=== PATIENT | female | born 1955 | race Caucasian/White ===

== ENCOUNTER → 2016-11-12 | Outpatient (CLI) | payer SELFPAY ==
--- NOTE | 2016-11-14 10:49 | Diagnostic Imaging Report ---
EXAM: Bilateral screening mammogram 2D views with tomosynthesis The current study was also evaluated with a Computer Aided Detection (CAD) system. INDICATION: Screening. No current complaints stated on the questionnaire. COMPARISON: 06/28/15. FINDINGS: The breasts are composed of heterogeneously dense parenchyma which may decrease mammographic sensitivity. There are benign-appearing calcifications seen. There is focal asymmetry along the outer upper aspect of the left breast. In the CC projection it is located at the lateral margin of the fibroglandular tissue at the mid to posterior depth. Question of a correlating density in the upper aspect of the left MLO view is seen. The asymmetry persists in the tomographic view, particularly within the CC projection, image 15 over 56. The right breast demonstrates no definite change. IMPRESSION: Focal compression view and ultrasound evaluation for upper outer left breast focal asymmetry is recommended. BI-RADS 0. ACR BI-RADS Category 0: Incomplete. (Needs additional imaging evaluation). Result letter will be mailed to the patient. Note: At least 10% of breast cancer is not imaged by mammography. Dictated by: Dictated on workstation # [id number]
== END ==
LOC: RAD 10:03
PROVIDERS: ATTEND Family Medicine
DX: Z12.31 Encounter for screening mammogram for malignant neoplasm of breast (principal)
CPT/HCPCS: 77067

== ENCOUNTER → 2016-12-11 | Outpatient (CLI) | payer SELFPAY ==
--- NOTE | 2016-12-11 22:00 | Diagnostic Imaging Report ---
EXAMINATION: Ultrasound of the left breast limited INDICATION: Abnormal density The screening mammogram performed on 11/12/16 noted an asymmetric density in the upper-outer aspect of the left breast. The diagnostic mammogram performed earlier today failed to show any sign of malignancy in this area. On this study, there are 2 contiguous fairly well circumscribed hypoechoic areas deep in the left breast in the 1-2 o'clock position. These measure 0.9 x 0.5 CM and 0.5 x 0.3 CM. I suspect that these are cysts although they may contain a few internal echoes suggesting that they have slightly complicated by infection and/or hemorrhage. There are no solid lesions to suggest malignancy. Even so, it may prove worthwhile to have a short-term (6 month) followup mammogram and ultrasound exam of the left breast for continued evolution. IMPRESSION: There are two contiguous probably slightly complicated cysts deep in the left breast. There is no evidence for malignancy. Recommendations as above. ACR BI-RADS Category 3: Probably benign findings. Dictated by: Dictated on workstation # [id number]
--- NOTE | 2016-12-12 22:41 | Diagnostic Imaging Report ---
Unilateral diagnostic left mammogram. INDICATION: Abnormal screening mammogram. The current study was also evaluated with a Computer Aided Detection (CAD) system. The screening mammogram performed on 11/12/16 noted a focal asymmetry along the upper-outer aspect of the left breast. Compression views of this area show no definite abnormality. In reviewing the tomographic views, there is no clear evidence for a mass in this area either. This finding may merely be secondary to superimposition of the dense fibroglandular tissue in this region. Even so, I would recommend that ultrasound be performed for further study. IMPRESSION: There is no evidence of malignancy. Ultrasound would be recommended for further study. ACR BI-RADS Category 0: Incomplete. (Needs additional imaging evaluation). Result letter will be mailed to the patient. Note: At least 10% of breast cancer is not imaged by mammography. Dictated by: Dictated on workstation # [id number]
== END ==
LOC: RAD 13:56
PROVIDERS: ATTEND Family Medicine
DX: N64.89 Other specified disorders of breast (principal)
CPT/HCPCS: 76642

== ENCOUNTER → 2017-11-13 | Outpatient (CLI) | payer SELFPAY ==
--- NOTE | 2017-11-13 08:33 | Diagnostic Imaging Report ---
INDICATION: Left breast density. Comparison is made with prior mammograms from 11/12/2016 and 06/28/2015. 2-D and 3-D bilateral diagnostic mammography was performed with Computer Aided Detection (CAD) system. FINDINGS: Bilateral breast calcifications are identified which appear stable and likely benign. The area of nodular density along the lateral aspect of the left breast on prior exam is not as well-seen on today's study. No new mass is identified. No malignant appearing microcalcifications are identified. The axillae are unremarkable. IMPRESSION: Stable bilateral mammograms with no mammographic features suspicious for malignancy. Even so, left breast ultrasound will be performed to followup previously noted complex cyst at the 1 to 2 o'clock location of the left breast. ACR BI-RADS Category 0: Incomplete. (Needs additional imaging evaluation). Result letter will be mailed to the patient. Note: At least 10% of breast cancer is not imaged by mammography. Dictated by: Dictated on workstation # [id number]
--- NOTE | 2017-11-13 18:00 | Diagnostic Imaging Report ---
INDICATION: Left breast cyst. Study was performed for followup. COMPARISON: Correlation with prior left breast ultrasound from 12/11/2016. EXAMINATION: Sonographic interrogation of the 1-2 o'clock location of the left breast was performed. FINDINGS: There is a simple appearing cyst at this location, measuring 7 mm x 4 mm x 6 mm, slightly smaller when compared with prior ultrasound. The second previously noted adjacent cyst is no longer visualized. There is a new tiny cyst near this measuring approximately 4 mm in size. No solid mass is detected. IMPRESSION: BI-RADS 2 Simple cyst at the 1:30 location of the left breast, 4 cm from the nipple. No solid breast mass is identified. Patient may return to routine annual screening mammography. Edited by manjeet. Dictated by: Dictated on workstation # [id number]
== END ==
LOC: RAD 07:49
PROVIDERS: ATTEND Family Medicine
DX: N60.02 Solitary cyst of left breast (principal)
CPT/HCPCS: 76642; 77066

== ENCOUNTER → 2018-11-03 | Outpatient (CLI) | payer MEDICARE ==
--- NOTE | 2018-11-03 12:39 | Diagnostic Imaging Report ---
PROCEDURE: US abdomen complete. TECHNIQUE: Multiple real-time grayscale images were obtained over the abdomen in various projections. INDICATION: Left lower quadrant pain COMPARISON: There are no prior studies available for comparison. FINDINGS: There is no evidence for cholelithiasis or acute cholecystitis and the common bile duct is not dilated. The liver is not enlarged. There is no focal mass involving the liver and the biliary tree is not abnormally dilated. Spectral and color flow imaging of the portal vein shows that the vein is patent and that there is normal directional flow within the vein. The spleen, kidneys, aorta and inferior vena cava and pancreas show no sign of an acute abnormality. There is no mass or free fluid collection evident. IMPRESSION: 1. There is no evidence for an acute abnormality. 2. Reportedly, a pelvic ultrasound exam is pending for further study. Dictated by: Dictated on workstation # [id number]
--- NOTE | 2018-11-03 12:43 | Diagnostic Imaging Report ---
PROCEDURE: US Non-ob pelvis comp/trans. TECHNIQUE: Multiple realtime grayscale images were obtained of the pelvis in various projections endovaginally. Transabdominal imaging was also performed. INDICATION: Left lower quadrant pain. COMPARISON: There are no prior studies available for comparison. FINDINGS: The uterus is not enlarged measuring 5.4 x 4.2 x 2.4 cm. The endometrial lining is not thickened measuring 2 mm. There is no focal mass involving the uterus to suggest a fibroid. Neither ovary could be identified. During the course of the exam, a few prominent vessels were seen in the left adnexa however. These are nonspecific in appearance. There is no solid pelvic mass or free fluid collection evident. IMPRESSION: 1. There is no evidence for an acute abnormality of the pelvis. If clinical concern regarding underlying abnormality persists, then CT of the abdomen and pelvis would be recommended for further study. 2. Neither ovary could be identified. Dictated by: Dictated on workstation # [id number]
== END ==
LOC: RAD 09:49
PROVIDERS: ATTEND Family Medicine
DX: R10.32 Left lower quadrant pain (principal)
CPT/HCPCS: 76700; 76830; 76856

== ENCOUNTER → 2018-11-24 | Outpatient (CLI) | payer MEDICARE ==
--- NOTE | 2018-11-24 10:52 | Diagnostic Imaging Report ---
INDICATION: Osteopenia without fracture, postmenopausal state. COMPARISON: 06/10/2008 FINDINGS: AP Spine L1-L4: [BMD (g/cm2): 0.669] [T-Score: -4.4] [Z-Score: -.34] [BMD Previous: 0.820] [BMD % Change: -18.4] LT Hip Neck: [BMD (g/cm2): 0.686] [T-Score: -2.5] [Z-Score: -1.4] LT Hip Total: [BMD (g/cm2):0.800] [T-Score:-1.6] [Z-Score: -0.9] [BMD Previous: 0.834] [BMD % Change: -4.1] RT Hip Neck: [BMD (g/cm2):0.666] [T-Score:-2.7] [Z-Score:-1.6] RT Hip Total: [BMD (g/cm2):0.793] [T-score:-1.7] [Z-Score:-0.9] [BMD Previous:0.853] [BMD % Change:-7.0] *Indicates significant change from prior examination based on 95% confidence level. World Health Organization criteria for BMD interpretation classify patients as Normal (T-score at or above -1.0), Osteopenic (T-score between -1.0 and -2.5) or Osteoporotic (T-score at or below -2.5). LIMITATIONS AND MODIFICATION: None. FRACTURE RISK (FRAX SCORE): The ten year probability of (%): Major Osteoporotic Fracture: [14.3] Hip Fracture: [3.4] IMPRESSION: 1. Osteoporosis. 2. Due to differences in equipment utilized between examinations, direct quantitative comparison is not possible to assess for interval change in bone mineral density. 3. See below National Osteoporosis Foundation guidelines on when to potentially initiate pharmacologic therapy. Based on the National Osteoporosis Foundation Guidelines, pharmacologic treatment should be initiated in any of the following, unless clinical conditions suggest otherwise: * Any patient with prior fragility fracture of the hip or vertebrae. A spine fracture indicates 5X risk for subsequent spine fracture and 2X risk for subsequent hip fracture. * Osteoporosis (T-score <-2.5). * Postmenopausal women and men age 50 and older with low bone mass/osteopenia (T-score between -1.0 and -2.5) by DXA and 10-year major osteoporotic fracture greater than 20% or a 10-year probability of hip fracture greater than 3%. These fracture risks are supplied above in the FRAX score, if applicable. * Clinician judgement and/or patient preferences may indicate treatment for people with 10-year fracture probabilities above or below these levels. Dictated by: Dictated on workstation # [id number]
--- NOTE | 2018-11-24 14:27 | Diagnostic Imaging Report ---
INDICATION: Routine screening. COMPARISON: 11/13/2017 and 11/12/2016. TECHNIQUE: 2D and 3D bilateral screening mammography was performed with CAD. FINDINGS: Both breasts are heterogeneously dense, limiting the sensitivity of mammography. Scattered benign-appearing calcifications are again noted bilaterally. The parenchymal pattern appears to be stable. No new mass or malignant appearing microcalcifications are seen. The axillae are unremarkable. IMPRESSION: No mammographic features suspicious for malignancy are identified. ACR BI-RADS Category 2: Benign findings. Result letter will be mailed to the patient. Note: At least 10% of breast cancer is not imaged by mammography. Dictated by: Dictated on workstation # [id number]
== END ==
LOC: RAD 08:22
PROVIDERS: ATTEND Family Medicine
DX: Z12.31 Encounter for screening mammogram for malignant neoplasm of breast (principal); M81.0 Age-related osteoporosis without current pathological fracture; M85.80 Other specified disorders of bone density and structure, unspecified site; Z78.0 Asymptomatic menopausal state
CPT/HCPCS: 77067; 77080

== ENCOUNTER → 2019-11-01 | Outpatient (CLI) | payer MEDICARE ==
[~2019-11-01] MED LIST: HOLD METFORMIN - RECEIVED CONTRAST 20 ML VIAL IV SCH; IOHEXOL 350 MG/ML 100 ML (OMNIPAQUE 350) VIAL IV ONE; NS 100 ML (IVPB) BAG IV ONE
--- NOTE | 2019-11-01 11:23 | Diagnostic Imaging Report ---
PROCEDURE: CT abdomen and pelvis with contrast. TECHNIQUE: Multiple contiguous axial images were obtained through the abdomen and pelvis after administration of intravenous contrast. Auto Exposure Controls were utilized during the CT exam to meet ALARA standards for radiation dose reduction. INDICATION: Right adnexal mass, pain. COMPARISON: Ultrasound dated 11/03/2018 FINDINGS: The visualized lung bases are clear. Moderate size hiatal hernia. The liver, spleen, and adrenal glands are unremarkable. The pancreas is unremarkable. The gallbladder is unremarkable. The bilateral kidneys are unremarkable. No aneurysmal dilatation of the abdominal aorta. Tiny fat-containing umbilical hernia. The urinary bladder is unremarkable. The uterus is retroverted. The uterus and adnexa are otherwise unremarkable. The distal colon is predominantly decompressed. No bowel obstruction or pneumatosis. No significant adenopathy, free air, or free fluid within the abdomen or pelvis. 8 mm anterolisthesis of L5 on S1 secondary to bilateral pars interarticularis defects of L5. No acute osseous abnormality. The appendix is not definitely seen, though no secondary signs of acute appendicitis are noted within the right lower quadrant. IMPRESSION: The distal colon is decompressed without evidence of bowel obstruction or pneumatosis. Moderate size hiatal hernia. Additional findings as described above. Dictated by: Dictated on workstation # [id number]
== END ==
LOC: RAD 10:10
PROVIDERS: ATTEND Family Medicine
DX: K44.9 Diaphragmatic hernia without obstruction or gangrene (principal); N83.8 Other noninflammatory disorders of ovary, fallopian tube and broad ligament; K59.8 Other specified functional intestinal disorders
CPT/HCPCS: 74177

== ENCOUNTER 2019-11-19 12:29 | Outpatient (RCR) | payer MEDICARE ==
[~2019-11-19] VITALS: Ht 170 cm; Wt 86.3 kg
[~2019-11-19 12:29] MED LIST changes: +ASPI-999 PO; +CALC600T14 PO; +CHOL10007 PO; -HOLD METFORMIN - RECEIVED CONTRAST 20 ML VIAL IV SCH; -IOHEXOL 350 MG/ML 100 ML (OMNIPAQUE 350) VIAL IV ONE; +MULT-1136 PO; -NS 100 ML (IVPB) BAG IV ONE
== END 2019-11-19 12:31 | disposition home or self-care (01) ==
LOC: PREOP 12:29
PROVIDERS: ATTEND Internal Medicine
DX: Z01.818 Encounter for other preprocedural examination (principal)

== ENCOUNTER → 2019-11-30 | Outpatient (CLI) | payer MEDICARE ==
--- NOTE | 2019-11-30 13:01 | Diagnostic Imaging Report ---
INDICATION: Routine screening. COMPARISON: 11/24/2018 and 11/13/2017. TECHNIQUE: 2D and 3D bilateral screening mammography was performed with CAD. FINDINGS: Both breasts are heterogeneously dense, limiting the sensitivity of mammography. Scattered benign calcifications are again noted. No dominant mass or malignant appearing microcalcifications are seen. The axillae are unremarkable. IMPRESSION: No mammographic features suspicious for malignancy are identified. ACR BI-RADS Category 2: Benign findings. Result letter will be mailed to the patient. Note: At least 10% of breast cancer is not imaged by mammography. Dictated by: Dictated on workstation # [id number]
== END ==
LOC: RAD 09:46
PROVIDERS: ATTEND Family Medicine
DX: Z12.31 Encounter for screening mammogram for malignant neoplasm of breast (principal)
CPT/HCPCS: 77063; 77067

== ENCOUNTER → 2020-03-22 | Outpatient (CLI) | payer MEDICARE ==
[~2020-03-22] MED LIST changes: -CALC600T14 PO; +CLC600T PO
--- NOTE | 2020-03-22 10:54 | Diagnostic Imaging Report ---
EXAMINATION: Right knee radiographs, 3 views. COMPARISON: None. HISTORY: 64-year-old female, right knee pain. FINDINGS: There is no right knee joint effusion. There is moderate patellofemoral compartment joint space loss of the right knee. There is mild medial and lateral compartment joint space loss. There are very small medial compartment osteophytes. There is no identified acute fracture. IMPRESSION: 1. 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 Dictated by: Dictated on workstation # [id number]
== END ==
LOC: RAD 09:11
PROVIDERS: ATTEND Family Medicine
DX: M17.11 Unilateral primary osteoarthritis, right knee (principal)
CPT/HCPCS: 73562

== ENCOUNTER → 2020-11-28 | Outpatient (CLI) | payer MEDICARE ==
[~2020-11-28] MED LIST changes: +CALC600T91 PO; -CLC600T PO
--- NOTE | 2020-11-28 09:11 | Diagnostic Imaging Report ---
INDICATION: Postmenopausal female COMPARISON: 11/24/2018 FINDINGS: AP Spine L1-L4: [BMD (g/cm2): 0.708] [T-Score: -4.1] [Z-Score: -3.2] [BMD Previous: 0.669] [BMD % Change: 5.8] LT Hip Neck: [BMD (g/cm2): 0.702] [T-Score: -2.4] [Z-Score: -1.3] LT Hip Total: [BMD (g/cm2):0.828] [T-Score:-1.4] [Z-Score: -0.6] [BMD Previous: 0.834] [BMD % Change: 3.5] RT Hip Neck: [BMD (g/cm2):0.682] [T-Score:-2.6] [Z-Score:-1.5] RT Hip Total: [BMD (g/cm2):0.819] [T-score:-1.5] [Z-Score:-0.7] [BMD Previous:0.793] [BMD % Change:3.3] Standard deviation of the lumbar spine is 0.010 g/sq cm, and 0.012 g/sq cm of the hips. World Health Organization criteria for BMD interpretation classify patients as Normal (T-score at or above -1.0), Osteopenic (T-score between -1.0 and -2.5) or Osteoporotic (T-score at or below -2.5). LIMITATIONS AND MODIFICATION: None. FRACTURE RISK (FRAX SCORE): The ten year probability of (%): Major Osteoporotic Fracture: [22.6] Hip Fracture: [5.3] IMPRESSION: 1. Osteoporosis. 2. There has been a statistically significant increase in BMD since prior exam, detailed above. 3. See below National Osteoporosis Foundation guidelines on when to potentially initiate pharmacologic therapy. Based on the National Osteoporosis Foundation Guidelines, pharmacologic treatment should be initiated in any of the following, unless clinical conditions suggest otherwise: * Any patient with prior fragility fracture of the hip or vertebrae. A spine fracture indicates 5X risk for subsequent spine fracture and 2X risk for subsequent hip fracture. * Osteoporosis (T-score <-2.5). * Postmenopausal women and men age 50 and older with low bone mass/osteopenia (T-score between -1.0 and -2.5) by DXA and 10-year major osteoporotic fracture greater than 20% or a 10-year probability of hip fracture greater than 3%. These fracture risks are supplied above in the FRAX score, if applicable. * Clinician judgement and/or patient preferences may indicate treatment for people with 10-year fracture probabilities above or below these levels. Dictated by: Dictated on workstation # [id number]
== END ==
LOC: RAD 08:30
PROVIDERS: ATTEND Family Medicine
DX: M81.0 Age-related osteoporosis without current pathological fracture (principal); Z78.0 Asymptomatic menopausal state
CPT/HCPCS: 77080

== ENCOUNTER → 2020-11-30 | Outpatient (CLI) | payer MEDICARE ==
--- NOTE | 2020-11-30 11:37 | Diagnostic Imaging Report ---
Indication: Routine screening. Comparison is made with prior mammogram 11/30/2019 and 11/24/2018. 2-D and 3-D bilateral screening mammography was performed with CAD. Both breasts are heterogeneously dense, limiting the sensitivity of mammography. There is a circumscribed density in the left breast best seen on the left MLO tomographic image 37. This is difficult to locate on the CC view. Additional views are recommended. Right breast unremarkable. There are scattered benign calcifications. No malignant-appearing microcalcifications are seen. Axillae are unremarkable. IMPRESSION: BI-RADS 0 Left breast density central left breast which may be slightly medial. Additional views are recommended for further evaluation. ACR BI-RADS Category 0: Incomplete. (Needs additional imaging evaluation). Result letter will be mailed to the patient. Note: At least 10% of breast cancer is not imaged by mammography. Dictated by: Dictated on workstation # [id number]
== END ==
LOC: RAD 08:00
PROVIDERS: ATTEND Family Medicine
DX: Z12.31 Encounter for screening mammogram for malignant neoplasm of breast (principal)
CPT/HCPCS: 77063; 77067

== ENCOUNTER → 2020-12-12 | Outpatient (CLI) | payer MEDICARE ==
--- NOTE | 2020-12-12 14:51 | Diagnostic Imaging Report ---
INDICATION: Left breast density. Patient presents for additional views. COMPARISON: Correlation is made with the screening study from 11/30/2020. TECHNIQUE: Unilateral left 2D and 3D diagnostic mammography was performed. This included spot compression ML as well as conventional 90 degree lateral views. FINDINGS: Additional views show a persistent circumscribed nodule just below the nipple line approximately 5 cm from the nipple. Further evaluation with ultrasound is recommended. IMPRESSION: Persistent circumscribed nodular density, as described. Further evaluation with ultrasound is recommended and will be performed today. ACR BI-RADS Category 0: Incomplete. (Needs additional imaging evaluation). Result letter will be mailed to the patient. Note: At least 10% of breast cancer is not imaged by mammography. Dictated by: Dictated on workstation # [id number]
--- NOTE | 2020-12-12 14:59 | Diagnostic Imaging Report ---
INDICATION: Abnormal mammogram. COMPARISON: Correlation is made with the diagnostic mammogram from earlier this same day and a screening mammogram from 11/30/2020. FINDINGS: Sonographic interrogation from the 9 to 3 o'clock location of the left breast was performed. There is a simple cyst at the 9 o'clock location 5 cm from the nipple measuring 6 mm x 4 mm x 11 mm, likely accounting for the mammographic density. A smaller cyst at the 9 o'clock location 8 cm from the nipple is also seen measuring 6 mm x 4 mm x 5 mm. Several small cysts at the 2:30 location are also noted. No solid masses are detected. IMPRESSION: Left breast cysts. The cyst at the 9 o'clock location 5 cm from the nipple likely accounts for the mammographic density. The patient may return to routine annual screening mammography. ACR BI-RADS Category 2: Benign findings. Dictated by: Dictated on workstation # [id number]
== END ==
LOC: RAD 13:30
PROVIDERS: ATTEND Family Medicine
DX: N60.02 Solitary cyst of left breast (principal)
CPT/HCPCS: 76642; 77065; G0279

== ENCOUNTER → 2021-12-03 | Outpatient (CLI) | payer MEDICARE ==
--- NOTE | 2021-12-03 08:50 | Diagnostic Imaging Report ---
INDICATION: Routine screening. COMPARISON: 11/30/2020 and 11/30/2019. TECHNIQUE: 2D and 3D bilateral screening mammography was performed with CAD. FINDINGS: Both breasts are heterogeneously dense, limiting the sensitivity of mammography. There are scattered benign calcifications. The overall parenchymal pattern is stable. No dominant mass or malignant-appearing microcalcifications are seen. The axillae are unremarkable. IMPRESSION: No mammographic features suspicious for malignancy are identified. ACR BI-RADS Category 2: Benign findings. Result letter will be mailed to the patient. Note: At least 10% of breast cancer is not imaged by mammography. Dictated by: Dictated on workstation # [id number]
== END ==
LOC: RAD 08:00
PROVIDERS: ATTEND Family Medicine
DX: Z12.31 Encounter for screening mammogram for malignant neoplasm of breast (principal)
CPT/HCPCS: 77063; 77067

== ENCOUNTER → 2022-11-18 | Outpatient (CLI) | payer MEDICARE ==
--- NOTE | 2022-11-18 09:12 | Diagnostic Imaging Report ---
INDICATION: Routine screening. COMPARISON: 12/03/2021 and 11/30/2020. TECHNIQUE: 2D and 3D bilateral screening mammography was performed with CAD. FINDINGS: Both breasts are heterogeneously dense, limiting the sensitivity of mammography. Scattered benign calcifications throughout both breasts are again noted. No dominant mass or malignant-appearing microcalcifications are seen. The axillae are unremarkable. IMPRESSION: No mammographic features suspicious for malignancy are identified. ACR BI-RADS Category 2: Benign findings. Result letter will be mailed to the patient. Note: At least 10% of breast cancer is not imaged by mammography. Dictated by: Dictated on workstation # [id number]
== END ==
LOC: RAD 07:34
PROVIDERS: ATTEND Family Medicine
DX: Z12.31 Encounter for screening mammogram for malignant neoplasm of breast (principal)
CPT/HCPCS: 77063; 77067

== ENCOUNTER → 2022-12-31 | Outpatient (CLI) | payer MEDICARE ==
--- NOTE | 2022-12-31 16:09 | Diagnostic Imaging Report ---
INDICATION: Postmenopausal screening. COMPARISON: 11/28/2020. FINDINGS: AP Spine L1-L4: [BMD (g/cm2): 0.710] [T-Score: -4.1] [Z-Score: -3.1] [BMD Previous: 0.708] [BMD % Change: 0.3] LT Hip Neck: [BMD (g/cm2): 0.683] [T-Score: -2.6] [Z-Score: -1.3] LT Hip Total: [BMD (g/cm2):0.825] [T-Score:-1.4] [Z-Score: -0.5] [BMD Previous: 0.828] [BMD % Change: -0.4] RT Hip Neck: [BMD (g/cm2):0.698] [T-Score:-2.4] [Z-Score:-1.2] RT Hip Total: [BMD (g/cm2):0.811] [T-score:-1.6] [Z-Score:-0.6] [BMD Previous:0.819] [BMD % Change:-1.0] *Indicates significant change from prior examination based on 95% confidence level. World Health Organization criteria for BMD interpretation classify patients as Normal (T-score at or above -1.0), Osteopenic (T-score between -1.0 and -2.5) or Osteoporotic (T-score at or below -2.5). LIMITATIONS AND MODIFICATION: None. FRACTURE RISK (FRAX SCORE): The ten year probability of (%): Major Osteoporotic Fracture: [35.7] Hip Fracture: [10.8] IMPRESSION: 1. Osteoporosis. 2. No significant change in bone mineral density since prior examination. 3. See below National Osteoporosis Foundation guidelines on when to potentially initiate pharmacologic therapy. Based on the National Osteoporosis Foundation Guidelines, pharmacologic treatment should be initiated in any of the following, unless clinical conditions suggest otherwise: * Any patient with prior fragility fracture of the hip or vertebrae. A spine fracture indicates 5X risk for subsequent spine fracture and 2X risk for subsequent hip fracture. * Osteoporosis (T-score <-2.5). * Postmenopausal women and men age 50 and older with low bone mass/osteopenia (T-score between -1.0 and -2.5) by DXA and 10-year major osteoporotic fracture greater than 20% or a 10-year probability of hip fracture greater than 3%. These fracture risks are supplied above in the FRAX score, if applicable. * Clinician judgement and/or patient preferences may indicate treatment for people with 10-year fracture probabilities above or below these levels. Dictated by: Dictated on workstation # [id number]
== END ==
LOC: RAD 10:08
PROVIDERS: ATTEND Family Medicine
DX: M81.0 Age-related osteoporosis without current pathological fracture (principal)
CPT/HCPCS: 77080